=== PATIENT | male | born 1965 | race Two or more races ===

== ENCOUNTER 2022-02-03 19:01 | Inpatient (IN) | payer MEDICAID, OTHER ==
[~2022-02-03] VITALS: Ht 177.8 cm; Wt 97.5 kg
[2022-02-03 22:00] VITALS: BP 127/75
[2022-02-04 00:42] LABS: INR 0.97 (0.9-1.15)
[2022-02-04 00:47] LABS: Albumin 3.6 g/dL (3.4-5.0); Anion Gap 8 (5-15); BUN/Creatinine Ratio 18.2; Blood Urea Nitrogen 16 mg/dL (7-18); Calcium 8.9 mg/dL (8.5-10.1); Carbon Dioxide 26 mmol/L (21-32); Chloride 105 mmol/L (98-107); GFR African American 115 mL/min; GFR Non-African American 95 mL/min; Glucose 115 mg/dL (74-106); Potassium 4.4 mmol/L (3.5-5.1)
[2022-02-04 00:49] LABS: Sodium 139 mmol/L (136-145)
[2022-02-04 00:50] LABS: Alanine Aminotransferase 27 U/L (16-61); Alkaline Phosphatase 50 U/L (45-117); Aspartate Aminotransferase 21 U/L (15-37); Bilirubin, Total 0.3 mg/dL (0.2-1.0); Total Protein 7.5 g/dL (6.4-8.2)
[2022-02-04 01:07] LABS: Basophils # (auto) 0.1 10 ^3/uL (0-0.2); Eosinophils # (auto) 0.2 10 ^3/uL (0-0.8); Eosinophils % (auto) 2.4 % (0.0-7.0); Hematocrit 44.6 % (41.0-53.0); Lymphocytes # (auto) 2.9 10 ^3/uL (0.4-5.4); Lymphocytes % (auto) 35.1 % (10.0-50.0); Mean Corpuscular Hemoglobin 27.4 pg (28.0-32.0); Mean Corpuscular Hgb Conc. 33.6 g/dL (32.0-36.0); Mean Corpuscular Volume 81.8 fL (80.0-100.0); Monocytes # (auto) 0.5 10 ^3/uL (0-1.3); Monocytes % (auto) 6.4 % (0.0-12.0); Neutrophils # (auto) 4.5 10 ^3/uL (1.6-8.6); Neutrophils % (auto) 55.1 % (37.0-80.0); Nucleated Red Blood Cells % 0.6 %; Red Blood Cells 5.45 10^6/uL (4.5-5.90); Red Cell Distribution Width 15.9 % (11.8-14.3); White Blood Cell 8.2 10^3/uL (4.4-10.8)
[2022-02-04 05:00] VITALS: BP 102/49
[2022-02-04 09:00] VITALS: BP 115/68
[2022-02-04 09:25] LABS: Urine Specific Gravity 1.024 (1.001-1.035)
[2022-02-04 09:26] LABS: Urine Blood Negative /uL (Negative)
[2022-02-04] MEDS ORDERED: ceFAZolin 1GM/50ML 100 ML IV ONE (12:58)
[2022-02-04] MEDS ORDERED: BUPIVACAINE IMPLANT 3x100mg IL ONE (13:00)
[2022-02-04] MEDS ORDERED: SUCCINYLCHOLINE CHLORIDE 20 MG/ML 10ML VIAL IV ONE (13:32)
[2022-02-04] MEDS ORDERED: fentaNYL CITRATE 100 MCG/2 ML VL ONE (13:33)
[2022-02-04] MEDS ORDERED: MEPERIDINE HCL (50 MG/ML) 1 ML VIAL ONE (13:33)
[2022-02-04] MEDS ORDERED: MIDAZOLAM HCL 2MG/2ML 2ml VIAL (1mg/ml) ONE (13:33)
[2022-02-04] MEDS ORDERED: ETOMIDATE (2MG/ML) 20ML VIAL IV ONE (14:07)
[2022-02-04] MEDS ORDERED: DexAMETHasone SOD PHOS 10MG/1ML VIAL INJ ONE (14:07)
[2022-02-04] MEDS ORDERED: MORPHINE SULFATE 4 MG/ML SYR/VIAL IV PRN ×2 (14:45→15:45)
[2022-02-04] MEDS ORDERED: ePHEDrine SULFATE 50 MG/ML AMP IV PRN ×2 (14:45→15:45)
[2022-02-04] MEDS ORDERED: LABETALOL HCL 5 MG/ML 4ML SYRINGE IV PRN ×2 (14:45→15:45)
[2022-02-04] MEDS ORDERED: HYDROmorphone HCL 2 MG/ML VL/or syr IV PRN ×2 (14:45→15:45)
[2022-02-04] MEDS ORDERED: MIDAZOLAM HCL 2MG/2ML 2ml VIAL (1mg/ml) IV PRN ×2 (14:45→15:45)
[2022-02-04] MEDS ORDERED: ONDANSETRON HCL 4 MG/2 ML VIAL IV PRN ×3 (14:45→15:45)
[2022-02-04] MEDS ORDERED: ACETAMINOPHEN/CODEINE#3 (300/30mg) TAB PO PRN (15:15)
[2022-02-04] MEDS ORDERED: SUGAMMADEX 200mg/2ml Vial (100MG/ML) IV ONE (15:25)
[2022-02-04 17:00] VITALS: BP 131/87
[2022-02-04] MEDS: HYDROmorphone HCL 2 MG/ML VL/or syr IV PRN ×2 (17:34→22:11)
[2022-02-04] MEDS: D5W/SOD CHL 0.45%/KCL 20MEQ 1,000 ML IV SCH (17:34)
[2022-02-04 22:00] VITALS: BP 114/73
[2022-02-05] MEDS: D5W/SOD CHL 0.45%/KCL 20MEQ 1,000 ML IV SCH (02:36)
[2022-02-05 05:00] VITALS: BP 105/65
[2022-02-05 09:00] VITALS: BP 115/69
[2022-02-05] MEDS ORDERED: PANTOPRAZOLE 40 MG/10 ML VIAL INJ IV SCH (10:00)
[2022-02-05 13:00] VITALS: BP 104/64
[2022-02-05 13:07] VITALS: BP 108/64
== END 2022-02-05 15:00 | disposition home or self-care (01) | DRG 227 ==
LOC: OVERFLOW 20:12 → WEST WING 20:28 → TELE-WESTW 02-05 03:50
PROVIDERS: ADMIT Registered Nurse; ATTEND Internal Medicine
PROC: 0WQF0ZZ Repair Abdominal Wall, Open Approach (ICD-10-PCS; 2022-02-04)
PROC: 0YQ50ZZ Repair Right Inguinal Region, Open Approach (ICD-10-PCS; principal; 2022-02-04 13:39)
DX: K40.90 Unilateral inguinal hernia, without obstruction or gangrene, not specified as recurrent (principal); E66.01 Morbid (severe) obesity due to excess calories; Z20.822 Contact with and (suspected) exposure to COVID-19; K42.9 Umbilical hernia without obstruction or gangrene; Z68.30 Body mass index [BMI] 30.0-30.9, adult; Z87.891 Personal history of nicotine dependence
CPT/HCPCS: 36415; 71045; 74176; 80053; 81003; 85025; 85610; 86850; 86900; 86901; 87426; 93306; C1781; C9113; G0378; J0330; J0690; J1100; J2250